=== PATIENT | female | born 1970 | race Hispanic/Latino ===

== ENCOUNTER 2018-05-13 09:47 | Emergency (ER) | payer OTHER ==
[2018-05-13 09:47] VITALS: BMI 44.2
[2018-05-13 09:52] VITALS: RESP 18
[2018-05-13] MEDS ORDERED: Sodium Chloride 0.9% 1,000 ML IV STA (10:14)
[2018-05-13] MEDS ORDERED: Iohexol 240 (50 ml) PO ONE (10:14)
[2018-05-13] MEDS ORDERED: Iohexol 240 (50 ml) ONE (10:30)
--- NOTE | 2018-05-13 11:01 | ED PDOC ---
HPI: Abdomen Time Seen by Provider: 05/13/18 10:01 Chief Complaint (Nursing): GI Problem Chief Complaint (Provider): vomiting, abd pain, weakness History Per: Patient History/Exam Limitations: no limitations Location Of Pain/Discomfort: Diffuse Quality Of Discomfort: Sharp, Cramping Associated Symptoms: Nausea, Vomiting, Diarrhea, Loss Of Appetite. denies: Fever, Chills Alleviating Factors: None Last Bowel Movement: Today Additional Complaint(s): 47yo female presents c/o abdominal pain, multiple episodes nonbloody vomiting and diarrhea with generalized weakness now ongoing about 4 days. Denies syncope, fever, cough, SOB or sore throat. Also notes intermittent vaginal spotting but notes a hx of hysterectomy. Notes 100lb weight loss over last year, unintentional. Denies blood in stool. Hx significant for multiple abdominal surgeries with "bladder and bowel reconstruction". Takes no Rx medications daily. Abnormal Vaginal Bleeding: Yes Past Medical History Reviewed: Historical Data, Nursing Documentation, Vital Signs Vital Signs: Last Vital Signs Temp 98.4 F 05/13/18 09:51 Pulse 63 05/13/18 09:51 Resp 18 05/13/18 09:51 BP 109/70 05/13/18 09:51 Pulse Ox 99 05/13/18 09:51 - Medical History PMH: Anemia, Asthma, Bronchitis, COPD, Depression, Fractures, Pneumonia Denies: Chronic Kidney Disease - Surgical History Other surgeries: hysterectomy, fibroids, bowel/bladder surgeries - Family History Family History: States: Unknown Family Hx - Living Arrangements Living Arrangements: With Family - Social History Current smoker - smoking cessation education provided: Yes - Immunization History Hx Tetanus Toxoid Vaccination: No Hx Influenza Vaccination: No Hx Pneumococcal Vaccination: No - Home Medications Home Medications: Ambulatory Orders Medication Instructions Recorded Albuterol Sulfate [Proventil Hfa] 0.09 mg IH PRN PRN 08/26/12 Montelukast Sodium [Singulair] 10 mg PO DAILY 08/26/12 Fluticasone/Salmeterol [Advair 1 puff PO Q12 09/17/13 250-50 Diskus] Albuterol/Ipratropium [Duoneb 3 1 ea IH Q6 06/17/15 mg/0.5 mg (3 ml) UD] Calcium Carbonate [Calcium] 650 mg PO BID 06/17/15 Famotidine/Ca Carb/Mag Hydrox 1 each PO DAILY 06/17/15 [Tums Dual Action Tablet Chew] Multivitamin [Multiple Vitamins] 1 tab PO DAILY 06/17/15 Amoxicillin/Clavulanate [Augmentin 1 tab PO BID #10 tab 06/30/15 875 MG-125 MG Tab] Amoxicillin/Clavulanate [Augmentin 1 tab PO Q12 #0 tab 06/30/15 875 MG-125 MG Tab] Metronidazole [Flagyl] 500 mg PO Q8H #15 tablet 06/30/15 Omeprazole [Prilosec] 40 mg PO DAILY #30 ecc 06/30/15 Oxycodone HCl/Acetaminophen 1 each PO TID PRN #30 tablet 06/30/15 [Percocet 10-325 mg Tablet] metroNIDAZOLE [Flagyl] 500 mg PO Q8 #0 tab 06/30/15 Ibuprofen [Motrin Tab] 600 mg PO Q6 PRN #15 tab 05/13/18 Ondansetron ODT [Zofran ODT] 4 mg PO Q6 PRN #10 odt 05/13/18 - Allergies Allergies/Adverse Reactions: Allergies Allergy/AdvReac Type Severity Reaction Status Date / Time morphine AdvReac RASH Verified 06/26/15 16:26 Review of Systems ROS Statement: Except As Marked, All Systems Reviewed And Found Negative Constitutional: Negative for: Fever ENT: Negative for: Ear Pain Respiratory: Negative for: Cough, Shortness of Breath Gastrointestinal: Positive for: Nausea, Vomiting, Abdominal Pain, Diarrhea. Negative for: Constipation, Melena, Hematochezia Genitourinary Female: Negative for: Dysuria Musculoskeletal: Negative for: Neck Pain Skin: Negative for: Rash, Lesions, Jaundice Neurological: Negative for: Weakness, Numbness Physical Exam - Reviewed Nursing Documentation Reviewed: Yes Vital Signs Reviewed: Yes - Physical Exam Appears: Positive for: Well, Non-toxic, No Acute Distress Head Exam: Positive for: ATRAUMATIC, NORMAL INSPECTION, NORMOCEPHALIC Skin: Positive for: Normal Color, Warm, DRY Eye Exam: Positive for: EOMI, Normal appearance, PERRL ENT: Positive for: Normal ENT Inspection Neck: Positive for: Normal, Painless ROM Cardiovascular/Chest: Positive for: Regular Rate, Rhythm Respiratory: Positive for: CNT, Normal Breath Sounds Gastrointestinal/Abdominal: Positive for: Soft, Tenderness (mild diffuse tenderness, healed midline scar) Back: Positive for: Normal Inspection Extremity: Positive for: Normal ROM Neurologic/Psych: Positive for: Alert, Oriented. Negative for: Motor/Sensory Deficits - Laboratory Results Result Diagrams: 05/13/18 10:54 05/13/18 10:54 - ECG O2 Sat by Pulse Oximetry: 99 Pulse Ox Interpretation: Normal Medical Decision Making Medical Decision Makin Abdomen/ Pelvis CT FINDINGS: LOWER THORAX: Unremarkable. LIVER: Multiple hepatic cysts, the largest is in the left hepatic lobe measuring 2.1 x 2.6 cm. No gross lesion or ductal dilatation. GALLBLADDER AND BILE DUCTS: Unremarkable. PANCREAS: Unremarkable. No gross lesion or ductal dilatation. SPLEEN: Unremarkable. ADRENALS: Unremarkable. No mass. KIDNEYS AND URETERS: Heterogeneously enhancing 4.1 x 3.5 cm right interpolar renal mass. No hydronephrosis. No solid mass. VASCULATURE: Unremarkable. No aortic aneurysm. No aortic atherosclerotic calcification or mural plaque present. BOWEL: Unremarkable. No obstruction. No gross mural thickening. APPENDIX: Normal appendix. PERITONEUM: Unremarkable. No free fluid. No free air. LYMPH NODES: Unremarkable. No enlarged lymph nodes. BLADDER: Unremarkable. REPRODUCTIVE: Prior hysterectomy. BONES: Multilevel spinal degenerative changes. No acute fracture. OTHER FINDINGS: None. IMPRESSION: No acute abdominal pelvic pathology. 4.1 x 3.5 cm right renal mass. Additional findings as above. labs reviewed - no clinically significant abnormalities Improved in ED , no vomiting Refused pelvic exam Disposition - Clinical Impression Clinical Impression: Renal mass, Vomiting and diarrhea, Vaginal bleeding - Disposition Referrals: Long Edgar MD [Staff Provider] - Otto Zelaya MD [Staff Provider] - Zurdo Chahal MD [Staff Provider] - Condition: STABLE Additional Instructions: Followup with primary doctor and oncologist for further testing of your kidney mass on R side. Return to ER for any new or worsening symptoms. Take nausea medication as directed and needed, motrin as needed for pain. Prescriptions: Ibuprofen [Motrin Tab] 600 mg PO Q6 PRN #15 tab PRN Reason: Pain, Moderate (4-7) Ondansetron ODT [Zofran ODT] 4 mg PO Q6 PRN #10 odt PRN Reason: Nausea/Vomiting Instructions: Kidney Cancer, Nausea and Vomiting, Adult (DC) Forms: [employer] ([employer])
[2018-05-13 11:11] LABS: BASO % 0.2 % (0.0-2.0); EOS # 0.1 K/uL (0.0-0.7); EOS % 2.2 % (0.0-4.0); HEMOGLOBIN 14.2 g/dL (12.0-16.0); LYMPH # 1.2 K/uL (1.0-4.3); LYMPH % 21.6 % (20.0-40.0); MEAN CELL VOLUME 90.2 fl (81.0-99.0); MEAN CORPUSCULAR HEMOGLOBIN 29.4 pg (27.0-31.0); MEAN CORPUSCULAR HGB CONC 32.6 g/dL (33.0-37.0); MEAN PLATELET VOLUME 9.1 fl (7.2-11.7); MONO # 0.4 K/uL (0.0-0.8); MONO % 7.5 % (0.0-10.0); NEUT # 3.8 K/uL (1.8-7.0); NEUT % 68.5 % (50.0-75.0); RBC 4.85 Mil/uL (3.80-5.20); RED CELL DISTRIBUTION WIDTH 13.7 % (11.5-14.5); WHITE BLOOD COUNT 5.6 K/uL (4.8-10.8)
[2018-05-13 11:18] LABS: ALB/GLOB RATIO 1.5 (1.0-2.1); ALBUMIN 4.7 g/dL (3.5-5.0); ALT/SGPT 34 U/L (9-52); AST/SGOT 25 U/L (14-36); BLOOD UREA NITROGEN 13 mg/dl (7-17); CALCIUM 10.1 mg/dL (8.4-10.2); GFR NON-AFRICAN AMERICAN > 60; LIPASE 141 U/L (23-300)
[2018-05-13] MEDS ORDERED: Iohexol 300 100 ML IJ ONE (12:59)
[2018-05-13] MEDS ORDERED: Sodium Chloride 0.9% 100 ML ONE (12:59)
--- NOTE | 2018-05-13 13:31 | CT ---
Date of service: 05/13/2018 PROCEDURE: CT Abdomen and Pelvis with contrast HISTORY: abdominal pain vomiting, vag bleed hx hysterectomy COMPARISON: None. TECHNIQUE: Contrast dose: 98 mL Omnipaque 300 Radiation dose: Total exam DLP = 709.85 mGy-cm. This CT exam was performed using one or more of the following dose reduction techniques: Automated exposure control, adjustment of the mA and/or kV according to patient size, and/or use of iterative reconstruction technique. FINDINGS: LOWER THORAX: Unremarkable. LIVER: Multiple hepatic cysts, the largest is in the left hepatic lobe measuring 2.1 x 2.6 cm. No gross lesion or ductal dilatation. GALLBLADDER AND BILE DUCTS: Unremarkable. PANCREAS: Unremarkable. No gross lesion or ductal dilatation. SPLEEN: Unremarkable. ADRENALS: Unremarkable. No mass. KIDNEYS AND URETERS: Heterogeneously enhancing 4.1 x 3.5 cm right interpolar renal mass. No hydronephrosis. No solid mass. VASCULATURE: Unremarkable. No aortic aneurysm. No aortic atherosclerotic calcification or mural plaque present. BOWEL: Unremarkable. No obstruction. No gross mural thickening. APPENDIX: Normal appendix. PERITONEUM: Unremarkable. No free fluid. No free air. LYMPH NODES: Unremarkable. No enlarged lymph nodes. BLADDER: Unremarkable. REPRODUCTIVE: Prior hysterectomy. BONES: Multilevel spinal degenerative changes. No acute fracture. OTHER FINDINGS: None. IMPRESSION: No acute abdominal pelvic pathology. 4.1 x 3.5 cm right renal mass. Additional findings as above.
--- NOTE | 2018-05-13 14:35 | RAD ---
Date of service: 05/13/2018 HISTORY: weakness COMPARISON: No prior. FINDINGS: LUNGS: No active pulmonary disease. PLEURA: No significant pleural effusion identified, no pneumothorax apparent. CARDIOVASCULAR: No aortic atherosclerotic calcification present. Normal cardiac size. No pulmonary vascular congestion. OSSEOUS STRUCTURES: No significant abnormalities. VISUALIZED UPPER ABDOMEN: Normal. OTHER FINDINGS: None. IMPRESSION: No active disease.
[2018-05-13 15:06] LABS: URINE BACTERIA RARE (<OCC); URINE BILIRUBIN NEGATIVE (NEGATIVE); URINE BLOOD NEGATIVE (NEGATIVE); URINE CALCIUM OXALATE CRYSTALS OCC /hpf (<OCC); URINE CLARITY SLIGHTY-CLOUDY (Clear); URINE COLOR YELLOW (YELLOW); URINE GLUCOSE (UA) NEG (NEGATIVE); URINE LEUKOCYTE ESTERASE NEG Leu/uL (Negative); URINE PROTEIN NEGATIVE (NEGATIVE)
[2018-05-13 16:37] VITALS: BP 127/74; PULSE 62; TEMP 98.5; O2SAT 100
== END 2018-05-13 16:00 | disposition home or self-care (01) ==
LOC: H.ER 09:47
DX: R11.2 Nausea with vomiting, unspecified (principal); N93.9 Abnormal uterine and vaginal bleeding, unspecified; N28.89 Other specified disorders of kidney and ureter; Z79.899 Other long term (current) drug therapy; Z88.5 Allergy status to narcotic agent
CPT/HCPCS: 71045; 74177; 80053; 81003; 83690; 85025; 99285; J2405; J7030; Q9966; Q9967